=== PATIENT | male | born 1940 | race African-American/Black ===

== ENCOUNTER 2018-03-07 08:54 | Emergency (ER) | payer OTHER ==
[2018-03-07 10:18] LABS: ALT (SGPT) 14 U/L (8-55); AST (SGOT) 20 U/L (5-34); Albumin 3.8 g/dL (3.4-4.8); Alkaline Phosphatase 58 U/L (40-150); Anion Gap 13 mmol/L (10-20); BUN (Urea Nitrogen) 16 mg/dL (8.4-25.7); Bilirubin, Total 1.1 mg/dL (0.2-1.2); Calc. Creatinine Clearance 0 mL/min (70-130); Calcium 8.8 mg/dL (7.8-10.44); Carbon Dioxide 21 mmol/L (23-31); Chloride 107 mmol/L (98-107); Estimated GFR-MDRD 68; Globulin 2.9 g/dL (2.4-3.5); Glucose 126 mg/dL (83-110); Potassium 4.1 mmol/L (3.5-5.1); Protein, Total 6.7 g/dL (5.8-8.1); Sodium 137 mmol/L (136-145)
[2018-03-07 10:20] LABS: CKMB 1.7 ng/mL (0-6.6); Troponin I Less than 0.010 ng/mL (< 0.028)
[2018-03-07 10:24] LABS: Eosinophils 1 % (0-10); Hemoglobin 14.1 g/dL (14.0-18.0); Lymphocytes 16 % (21-51); MDiff Complete? YES; Mean Corpuscular HGB CONC 34.1 g/dL (32.0-36.0); Mean Corpuscular Hemoglobin 33.3 pg (27.0-31.0); Mean Corpuscular Volume 97.7 fL (78.0-98.0); Mean Platelet Volume 7.8 fL (7.4-10.4); Monocytes 9 % (0-10); Neutrophil 74 % (42-75); PLT Morphology Comment Appears Decreased; Platelet Count 114 thou/uL (130-400); RBC Distribution Width 11.1 % (11.5-14.5); RBC Morphology Normal; Red Blood Cell (RBC) Count 4.23 mill/uL (4.70-6.10); White Blood Cell (WBC) Count 4.6 thou/uL (4.8-10.8)
--- NOTE | 2018-03-07 10:28 | RAD ---
SINGLE VIEW OF THE CHEST: Comparison: None. History: Syncope and fall. FINDINGS: Single view of the chest shows a normal sized cardiomediastinal silhouette. There is no evidence of c onsolidation, mass, or pleural effusion. The bones are unremarkable. IMPRESSION: No evidence of acute cardiopulmonary disease. POS: [facility]
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
--- NOTE | 2018-03-07 10:32 | CT ---
CT CERVICAL SPINE WITHOUT CONTRAST: HISTORY: Syncope and fall with neck pain. TECHNIQUE: Multiple contiguous axial images were obtained in a CT of the cervical spine without contrast. Sagit neva and coronal reformats were performed. FINDINGS: There are moderate degenerative changes of the cervical spine with intervertebral disk space narrowin g and anterior osteophyte formation. The vertebral bodies demonstrate normal height and alignment wi thout acute fracture or subluxation. The posterior facets are well aligned. Normal alignment of the skull base with the cervical spine is seen. IMPRESSION: Degenerative changes of the cervical spine without acute osseous abnormality. POS: [facility]
[2018-03-07] MEDS ORDERED: Acetaminophen 500 MG TAB ONE (11:37)
[2018-03-07] MEDS ORDERED: Bacitracin Zinc 1 Packet ONE (11:57)
== END 2018-03-07 14:13 | disposition short-term general hospital (02) ==
LOC: ERS 08:54 → EEVIPCON 08:54 → ERS 14:13
DX: R55 Syncope and collapse (principal); S01.81XA Laceration without foreign body of other part of head, initial encounter; D69.6 Thrombocytopenia, unspecified; I10 Essential (primary) hypertension; K21.9 Gastro-esophageal reflux disease without esophagitis; I25.10 Atherosclerotic heart disease of native coronary artery without angina pectoris; Z79.899 Other long term (current) drug therapy; W18.30XA Fall on same level, unspecified, initial encounter
CPT/HCPCS: 36415; 70450; 71045; 72125; 80053; 82553; 83880; 84484; 85025; 93005; 96360

== ENCOUNTER 2019-01-15 05:50 | Emergency (ER) | payer OTHER ==
[2019-01-15 07:02] LABS: Acetaminophen Less than 6.0 mcg/mL (10.0-30.0); Alcohol Less than 10 mg/dL (Less than 10); Salicylate Less than 8.0 mg/dL (15.0-30.0)
[2019-01-15 07:05] LABS: Calc. Creatinine Clearance 0 mL/min (70-130); Sodium 147 mmol/L (136-145)
[2019-01-15 07:08] LABS: #Lymphocytes 1.6 thou/uL (1.20-3.40); #Monocytes 0.5 thou/uL (0.11-0.59); %Basophils 0.7 % (0.0-1.0); %Eosinophils 0.8 % (0.0-10.0); %Lymphocytes 26.3 % (21.0-51.0); %Monocytes 7.7 % (0.0-10.0); %Neutrophils 64.5 % (42.0-75.0); Hemoglobin 14.4 g/dL (14.0-18.0); Mean Corpuscular HGB CONC 32.7 g/dL (32.0-36.0); Mean Corpuscular Hemoglobin 32.5 pg (27.0-31.0); Mean Corpuscular Volume 99.4 fL (78.0-98.0); Platelet Count 157 thou/uL (130-400); Red Blood Cell (RBC) Count 4.44 mill/uL (4.70-6.10); White Blood Cell (WBC) Count 6.1 thou/uL (4.8-10.8)
--- NOTE | 2019-01-15 07:18 | CT ---
CT CERVICAL SPINE WITHOUT CONTRAST: Date: 01/15/19 INDICATION: History of fall with neck pain. COMPARISON: Prior CT cervical spine dated 03/07/18. FINDINGS: There is moderate to severe multilevel cervical spondylosis, which is largely stable. Mild retrolisth esis of C4 on C5 appears stable. Craniocervical junction appears within normal limits. IMPRESSION: No acute osseous abnormality. POS: [facility]
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
[2019-01-15 07:52] LABS: INR-International Normal Ratio 1.4; PTT 37.4 SEC (22.9-36.1)
[2019-01-15 07:53] LABS: Prothrombin Time 14.6 SEC (12.0-14.7)
[2019-01-15 08:36] LABS: Bilirubin Negative (Negative); Blood, Urine Negative (Negative); Clarity CLEAR (Clear); Glucose, Urine (Dipstick) Negative (Negative); Leukocyte Negative (Negative); Nitrite Negative (Negative); Protein, Urine (Dipstick) 30 mg/dL (Neg-Trace)
[2019-01-15 08:37] LABS: Bacteria/HPF None Seen HPF (None Seen); Hyaline Casts/LPF 4-6 HYALINE CAST LPF (0-3 Hyaline); Pathc Cast-AUWi Flag 0.27 (0-2.49); RBC/HPF 0-3 HPF (0-3); Squamous Epithelial 0-3 HPF (0-3); WBC/HPF 0-3 HPF (0-3)
[2019-01-15 08:48] LABS: Amphetamine Not Detected (NotDetected); Barbiturates Screen Not Detected (NotDetected); Benzodiazepine Screen Not Detected (NotDetected); Cocaine Metabolite Screen Not Detected (NotDetected); Medtox Control Line Valid? VALID (VALID); Medtox Reader # READER 4; Methadone Not Detected (NotDetected); Methamphetamine Not Detected (NotDetected); Opiate Screen Not Detected (NotDetected); Oxycodone Screen Not Detected (NotDetected); Phencyclidine (PCP) Not Detected (NotDetected); THC/Cannabinoid Screen Not Detected (NotDetected); Tricyclic Screen Not Detected (NotDetected)
[2019-01-15] MEDS ORDERED: Ketorolac Tromethamine 60 MG/2 ML VIAL ONE (09:12)
[2019-01-15] MEDS ORDERED: Acetaminophen 500 MG TAB ONE (09:12)
[2019-01-15 10:22] LABS: Calcium 8.7 mg/dL (7.8-10.44); Chloride 104 mmol/L (98-107); Potassium 4.1 mmol/L (3.5-5.1)
[2019-01-15 10:23] LABS: Glucose 100 mg/dL (83-110)
[2019-01-15 10:39] LABS: Anion Gap 13 mmol/L (10-20); Carbon Dioxide 24 mmol/L (23-31)
[2019-01-15 10:40] LABS: BUN (Urea Nitrogen) 15 mg/dL (8.4-25.7); Estimated GFR-MDRD Greater than 90
[2019-01-15 10:41] LABS: Bilirubin, Total 0.9 mg/dL (0.2-1.2); Protein, Total 7.6 g/dL (5.8-8.1)
[2019-01-15 10:42] LABS: Albumin 3.9 g/dL (3.4-4.8)
[2019-01-15 10:43] LABS: Globulin 3.7 g/dL (2.4-3.5)
[2019-01-15 10:44] LABS: ALT (SGPT) 84 U/L (8-55); AST (SGOT) 51 U/L (5-34); Alkaline Phosphatase 85 U/L (40-150); CK (CPK) 172 U/L (30-200)
[2019-01-15 15:21] LABS: Troponin I Less than 0.010 ng/mL (< 0.028)
--- NOTE | 2019-01-15 15:52 | CT ---
CT ANGIOGRAM THORAX WITH IV CONTRAST AND 3-D RECONSTRUCTIONS CLINICAL INDICATION: Mid back pain with pain in neck. Pain radiates into arms bilaterally. Symptoms occurred after a fall. Weakness. COMPARISON: None FINDINGS: Pulmonary arteries: No filling defects are seen in the pulmonary arteries to suggest a pulmonary embo yaz. Aorta: The aorta is normal in caliber without evidence of an aortic dissection. Scattered vascular ca lcifications are seen in the thoracic as well as involving the abdominal aorta. Lungs: The lung apices are not imaged on this exam. Emphysematous changes are seen bilaterally. Visua lized lungs are otherwise clear. Mediastinum: Calcified mediastinal and hilar lymph nodes are seen. No enlarged lymph nodes are identi fied. Small hiatal hernia is present. Osseous structures: Degenerative changes are seen in the spine greatest involving the lower lumbar sp ine with degenerative changes involving the sacroiliac joints bilaterally Chest and abdominal wall: No abnormality visualized. The upper chest is excluded from view. Abdomen: A subcentimeter too small to characterize hypodense lesion is seen in the midportion right [place]. A moderate to large amount of retained fecal material is seen throughout the visualized colon suggesting constipation. Remainder of the abdomen demonstrates a normal CT appearance for phase of imaging. IMPRESSION: 1. Vascular calcifications in the thoracic and abdominal aorta there is no evidence of an aortic diss ection, and the thoracic and abdominal aorta are normal in caliber. 2. No CT evidence of a pulmonary embolus. 3. COPD. 4. Constipation. 5. Small hiatal hernia. 6. Subcentimeter too small to characterize hypodense lesion right kidney statistically likely represe nting a cyst.
== END 2019-01-15 11:00 ==
LOC: ERS 05:50 → EEVIPCON 05:50 → ERS 11:00
DX: M54.2 Cervicalgia (principal); M79.601 Pain in right arm; M79.602 Pain in left arm; R42 Dizziness and giddiness; R53.1 Weakness; J44.9 Chronic obstructive pulmonary disease, unspecified; I10 Essential (primary) hypertension; K21.9 Gastro-esophageal reflux disease without esophagitis; I25.10 Atherosclerotic heart disease of native coronary artery without angina pectoris; F17.210 Nicotine dependence, cigarettes, uncomplicated; Z79.82 Long term (current) use of aspirin; Z79.899 Other long term (current) drug therapy; Z79.51 Long term (current) use of inhaled steroids; W19.XXXA Unspecified fall, initial encounter
CPT/HCPCS: 36415; 70450; 71275; 72125; 80053; 80306; 80307; 81003; 81015; 82550; 84484; 85025; 85379; 85610; 85730; 86850; 86900; 86901; 87077; 87086; 93005; 96372; J1885